=== PATIENT | female | born 1950 | race Caucasian/White ===

== ENCOUNTER 2019-08-21 13:46 | Emergency (ER) | payer BC, MEDICARE ==
[~2019-08-21 13:46] MED LIST: Iopamidol-370 76% 500 ML 1 ML ONE
[2019-08-21] MEDS ORDERED: Lidocaine Viscous Sol 2% 15 ml UD Cup ONE (14:10)
[2019-08-21] MEDS ORDERED: Pantoprazole 40 MG VIAL ONE (14:10)
[2019-08-21] MEDS ORDERED: Mag-Al 1200 mg/1200 mg/30 ML UDCUP ONE (14:10)
[2019-08-21 14:29] LABS: #Lymphocytes 0.7 thou/uL (1.20-3.40); #Monocytes 0.6 thou/uL (0.11-0.59); #Neutrophils 10.3 thou/uL (1.40-6.50); %Basophils 0.3 % (0.0-1.0); %Eosinophils 0.2 % (0.0-10.0); %Lymphocytes 5.6 % (21.0-51.0); %Monocytes 4.9 % (0.0-10.0); %Neutrophils 88.9 % (42.0-75.0); Hemoglobin 16.8 g/dL (12.0-16.0); Mean Corpuscular HGB CONC 34.9 g/dL (32.0-36.0); Mean Corpuscular Hemoglobin 34.5 pg (27.0-31.0); Mean Corpuscular Volume 98.8 fL (78.0-98.0); Mean Platelet Volume 6.9 fL (7.4-10.4); Platelet Count 370 thou/uL (130-400); RBC Distribution Width 13.3 % (11.5-14.5); Red Blood Cell (RBC) Count 4.88 mill/uL (4.20-5.40); White Blood Cell (WBC) Count 11.5 thou/uL (4.8-10.8)
[2019-08-21 14:35] LABS: Prothrombin Time 13.5 SEC (12.0-14.7)
[2019-08-21 14:54] LABS: ALT (SGPT) 11 U/L (8-55); AST (SGOT) 17 U/L (5-34); Albumin 3.4 g/dL (3.4-4.8); Alkaline Phosphatase 73 U/L (40-110); Anion Gap 18 mmol/L (10-20); BUN (Urea Nitrogen) 22 mg/dL (9.8-20.1); Bilirubin, Total 1.2 mg/dL (0.2-1.2); CK (CPK) 34 U/L (29-168); Calc. Creatinine Clearance 0 mL/min (70-130); Calcium 8.3 mg/dL (7.8-10.44); Carbon Dioxide 19 mmol/L (23-31); Chloride 96 mmol/L (98-107); Estimated GFR-MDRD 54; Globulin 3.3 g/dL (2.4-3.5); Glucose 157 mg/dL (80-115); Lipase 10 U/L (8-78); Magnesium 1.9 mg/dL (1.6-2.6); Potassium 3.5 mmol/L (3.5-5.1); Protein, Total 6.7 g/dL (6.0-8.3); Sodium 129 mmol/L (136-145)
--- NOTE | 2019-08-21 15:34 | CT ---
CT Abdomen Pelvis W Con HISTORY: Nausea, vomiting and diarrhea COMPARISON: None. FINDINGS: The lung bases are clear. There is suggestion of a 2.3 cm calculus in the gallbladder. The liver, spleen, adrenal glands and kidneys appear normal. No free air is seen. There is small amount of free fluid in the abdomen and pelvis. There is mild inf lammatory change surrounding the head of the pancreas. The pancreas is otherwise unremarkable. No lymphadenopathy is identified in the abdomen or pelvis. There are vascular calcifications without evidence of aneurysmal dilatation of the abdominal aorta. T here are degenerative changes in the spine. There is severe compression of L1 vertebral body, likely old. Small bowel loops are not abnormally dilated. There is fluid in the small bowel loops. Th ere is colonic diverticulosis. Uterus is present. IMPRESSION: 1. Probable cholelithiasis. Gallbladder ultrasound be helpful. 2. Colonic diverticulosis 3. Small free fluid in the abdomen and pelvis 4. No evidence of high-grade small bowel obstruction. Probable enteritis. 5. Probable pancreatitis.
[2019-08-21 16:10] LABS: Bilirubin 1+ (Negative); Blood, Urine 3+ (Negative); Clarity Clear (Clear); Glucose, Urine (Dipstick) Normal (Negative); Leukocyte 25 Leu/uL (Negative); Nitrite Negative (Negative); Protein, Urine (Dipstick) 50 mg/dL (Neg-Trace); RBC/HPF Greater than 50 HPF (0-3); Transitional Epithelial 0-3 HPF (None Seen); WBC/HPF 21-50 HPF (0-3)
[2019-08-21 16:15] LABS: Bacteria/HPF 1+ HPF (None Seen)
== END 2019-08-21 17:23 | disposition home or self-care (01) ==
LOC: ERS 13:46
DX: N39.0 Urinary tract infection, site not specified (principal); R11.2 Nausea with vomiting, unspecified; B02.9 Zoster without complications
CPT/HCPCS: 36415; 74177; 80053; 81003; 81015; 82140; 82550; 83605; 83690; 83735; 83880; 84443; 85025; 85610; 85730; 93005; 94760; 96372; 96374; C9113; J0500; Q9967